=== PATIENT | male | born 1945 | race Asian ===

== ENCOUNTER 2018-10-18 17:59 | Emergency (ER) | payer MEDICARE, OTHER ==
[~2018-10-18] VITALS: Ht 170.2 cm; Wt 74.6 kg
[~2018-10-18 17:59] MED LIST: ASPI-650 PO; ATORVASTATIN; GLIP10TA14 PO; METO-448 PO; PLAVIX; TRADJENTA
[2018-10-18 18:36] VITALS: BP 150/67; PULSE 70; RESP 18; Ht 170.2 cm; Wt 74.6 kg
--- NOTE | 2018-10-18 20:30 | ERD ---
ER Documentation Chief Complaint Chief Complaint erythema noted to R eye since this afternoon, no pain HPI 73-year-old male, previously healthy, presents the emergency department, brought in by family, complaining of sudden onset of painless erythema on the right eye since this afternoon. Otherwise, no fever, no chills, no headache, no blurred vision, no direct trauma. ROS All systems reviewed and are negative except as per history of present illness. Medications Home Meds Active Scripts Polymyxin B Sulfate-TMP* (Polymyxin B-TMP Eye Drops*) 10 Ml Drops, 1 DROP RIGHT EYE QID for 7 Days, EA Prov:UCHE MESA MD 10/18/18 Reported Medications [Plavix] No Conflict Check 11/07/17 [Tradjenta] No Conflict Check 11/07/17 [Atorvastatin] No Conflict Check 11/07/17 Aspirin (Aspirin) 81 Mg Tablet, 81 MG PO DAILY 01/16/11 Metoprolol Tartrate* (Lopressor*) 25 Mg Tab, 25 MG PO DAILY 01/16/11 Glipizide* (Glipizide*) 10 Mg Tablet, 10 MG PO BID 01/16/11 Allergies Allergies: Coded Allergies: No Known Allergies (Verified Allergy, Unknown, 01/16/11) PMhx/Soc Anesthesia Reaction: No Hx Neurological Disorder: No Hx Respiratory Disorders: No Hx Cardiac Disorders: Yes (htn) Hx Psychiatric Problems: No Hx Miscellaneous Medical Probl: No Hx Alcohol Use: No Hx Substance Use: No Hx Tobacco Use: No FmHx Family History: diabetes, coronary disease Physical Exam Vitals Vital Signs Date Temp Pulse Resp B/P (MAP) Pulse Ox O2 O2 Flow FiO2 Time Delivery Rate 10/18/18 97.3 70 18 150/67 99 18:36 (94) Physical Exam Patient alert, oriented, vital signs stable. 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 EYES: PERRLA, EOMI, os with subconjunctival hemorrhage, contralateral con junctiva and sclera normal. NOSE: Clear and patent nostrils. EARS: Canals clear, tympanic membranes WNL. MOUTH: normal lips and tongue, no oral lesions. THROAT: Normal oropharynx, no tonsillar exudates. NECK: Supple, No lymphadenopathy. Full ROM without pain or tenderness. HEART: RRR, no rubs, murmurs, clicks or gallops. LUNGS: Clear to auscultation. ABDOMEN: Soft, non-tender without masses or hepatosplenomegaly. EXTREMITIES: No edema bilaterally. BACK: Full ROM, no deformity, normal back exam NEURO: Cranial nerves grossly intact, no motor or sensory deficit SKIN: No rashes, no petechia. Procedures/MDM Differential diagnosis include but not limited to: infection bacterial/viral/fungal, iritis, scleritis, corneal abrasion, allergies, foreign body, glaucoma. Physical examination and clinical presentation consistent most likely with subconjunctival hemorrhage. During the ED course the patient remained stable, no new complaints. Clinical impression discussed with patient who agrees with management. The patient is stable to be treated outpatient and will be discharged home. The patient was instructed to follow up with the primary care provider in the next 48h. If symptoms persist, worsen or new symptoms develop, then patient should return to the ED immediately. Disclaimer: Inadvertent spelling and grammatical errors are likely due to EHR/dictation software use and do not reflect on the overall quality of patient care. Also, please note that the electronic time recorded on this note does not necessarily reflect the actual time of the patient encounter. Departure Diagnosis: Primary Impression: Subconjunctival hemorrhage of right eye Condition: Stable Additional Instructions: Thank you very much for allowing us to participate in your care. Your health and safety is our top priority at [facility]. Call your primary care doctor TOMORROW for an appointment during the next 2-4 days and bring all the information provided. Have prescriptions filled and follow precisely the directions on the label. If the symptoms get worse and your provider is unavailable, return to the Emergency Department immediately. UCHE MESA MD October 18, 2018 20:30
[2018-10-18] MEDS ORDERED: POLY10DR19 RIGHT EYE (20:39)
== END 2018-10-18 20:50 | disposition home or self-care (01) ==
LOC: FTE 17:59
DX: H11.31 Conjunctival hemorrhage, right eye (principal); I10 Essential (primary) hypertension; Z79.82 Long term (current) use of aspirin
CPT/HCPCS: 99283